=== PATIENT | male | born 1965 | race Caucasian/White ===

== ENCOUNTER 2019-08-26 08:45 | Day surgery (SDC) | payer OTHER ==
[~2019-08-26] VITALS: Ht 175.3 cm; Wt 95.3 kg
[2019-08-26] MEDS ORDERED: fentaNYL 0.05 MG/ML VIAL ONE (12:04)
[2019-08-26] MEDS ORDERED: LIDOCAINE 2% 100 MG/5 ML UJET TP ONE (12:04)
== END 2019-08-26 13:17 | disposition home or self-care (01) ==
LOC: MDS 08:45 → MMU 09:14 → MDS 13:17
PROVIDERS: ATTEND Internal Medicine Gastroenterology
DX: Z12.11 Encounter for screening for malignant neoplasm of colon (principal); E11.9 Type 2 diabetes mellitus without complications; Z88.0 Allergy status to penicillin; Z88.1 Allergy status to other antibiotic agents; Z86.718 Personal history of other venous thrombosis and embolism
CPT/HCPCS: 45378; J3010